=== PATIENT | female | born 1960 | race Caucasian/White ===

== ENCOUNTER 2020-10-18 09:09 | Day surgery (SDC) | payer OTHER ==
[2020-10-18] MEDS ORDERED: BAMLANIVIMAB 700 MG, ETESEVIMAB 700 MG/20 ML 1,400 MG in Sodium Chloride 0.9% 250 ML 25... IVPB SCH (09:15)
[2020-10-18] MEDS ORDERED: diphenhydrAMINE 50 MG/ML VIAL ONE (09:17)
[2020-10-18] MEDS ORDERED: Acetaminophen 500 MG TAB ONE (09:17)
== END 2020-10-18 12:26 | disposition home or self-care (01) ==
LOC: CSHSDC 09:09
PROVIDERS: ATTEND Family Medicine
DX: U07.1 COVID-19 (principal); Z23 Encounter for immunization
CPT/HCPCS: 96365; 96374; J1200; J7050; M0245; Q0245

== ENCOUNTER 2021-02-28 13:44 | Outpatient (CLI) | payer OTHER ==
[2021-02-28 14:30] LABS: Hemoglobin 13.1 g/dL (12.0-15.5); Mean Corpuscular HGB CONC 32.5 g/dL (32.0-36.0); Mean Corpuscular Hemoglobin 29.2 pg (27.0-33.0); Platelet Count 304 10x3/uL (150-450); RBC Distribution Width 14.1 % (11.5-14.5); Red Blood Cell (RBC) Count 4.48 10x6/uL (3.90-5.03); White Blood Cell (WBC) Count 6.7 10x3/uL (3.5-10.5)
[2021-02-28 14:51] LABS: Anion Gap 14 mmol/L (10-20); BUN (Urea Nitrogen) 14 mg/dL (9.8-20.1); Calc. Creatinine Clearance 0 mL/min (70-130); Calcium 9.4 mg/dL (7.8-10.44); Carbon Dioxide 23 mmol/L (23-31); Chloride 106 mmol/L (98-107); Glucose 80 mg/dL (80-115); Potassium 3.8 mmol/L (3.5-5.1); Sodium 139 mmol/L (136-145)
[2021-03-01 07:41] LABS: SARS-CoV-2 PCR by NAA Not Detected (NotDetected)
== END 2021-02-28 13:45 | disposition home or self-care (01) ==
LOC: CSHLAB 13:44
PROVIDERS: ATTEND Orthopaedic Surgery
DX: Z01.812 Encounter for preprocedural laboratory examination (principal); Z20.822 Contact with and (suspected) exposure to COVID-19; M16.12 Unilateral primary osteoarthritis, left hip
CPT/HCPCS: 80048; 85027; U0003; U0005

== ENCOUNTER 2022-02-14 13:12 | Emergency (ER) | payer BC | END 2022-02-14 14:30 | disposition home or self-care (01) | LOC: CSHERS 13:12 | DX: M54.50 Low back pain, unspecified (principal); M25.552 Pain in left hip; E03.9 Hypothyroidism, unspecified; E78.5 Hyperlipidemia, unspecified; I10 Essential (primary) hypertension; I25.10 Atherosclerotic heart disease of native coronary artery without angina pectoris; W06.XXXA Fall from bed, initial encounter | CPT/HCPCS: 99283 ==

== ENCOUNTER 2022-09-14 07:24 | Outpatient (CLI) | payer BC | END 2022-09-14 07:25 | disposition home or self-care (01) | LOC: CSHMRI 07:24 | PROVIDERS: ATTEND Orthopaedic Surgery | DX: M75.101 Unspecified rotator cuff tear or rupture of right shoulder, not specified as traumatic (principal); M75.91 Shoulder lesion, unspecified, right shoulder; M94.8X1 Other specified disorders of cartilage, shoulder; M19.011 Primary osteoarthritis, right shoulder; M71.811 Other specified bursopathies, right shoulder ==